=== PATIENT | female | born 1960 | race American Indian/Alaskan Native ===

== ENCOUNTER 2017-01-16 07:43 | Emergency (ER) | payer BC, MEDICARE ==
[2017-01-16] MEDS ORDERED: NORCO 7.5/325 PO ONE (08:22)
[2017-01-16] MEDS ORDERED: TORADOL IM ONE (08:22)
[2017-01-16] MEDS ORDERED: FLEXERIL PO ONE (08:25)
--- NOTE | 2017-01-16 08:30 | Emergency Department Report ---
ED Fall HPI - General Chief Complaint: Fall Stated Complaint: HIPS/BACK/KNEE/SHOULDER PAIN Time Seen by Provider: 01/16/17 08:14 Source: patient Mode of arrival: Ambulatory - History of Present Illness Initial Comments: 56 year old female presents to ED with chronic bilateral knee pain, bilateral hip pain and left shoulder pain since July 2016. Patient states she had a mechanical fall while walking dog in July of 2016 and has never had xray's of knees, hips or shoulder where her pain currently is. patient denies trauma to head or LOC during fall of last year. patient denies any recent falls after fall in July 2016. patient has chronic use of cane for assisted walking. patient is stable, neurologically intact and in no acute distress. MD Complaint: fall (patient states her last fall was July 2016) -: month(s) (Patient last fall was july 2016) Fall From: standing When Fall Occurred: other (July 2016) Fall Witnessed: no Place Fall Occurred: street Loss of Consciousness: none Symptoms Prior to Fall: none (mechanical fall) Location: pelvis, other (bilateral knees, left shoulder) Location - Extremities: Left: Shoulder, Knee, Right: Knee Severity: mild Severity scale (0 -10): 10 Quality: burning Context: tripped/slipped Associated Symptoms: denies, unable to walk (patient has chronic use of cane x3 years) - Related Data Previous Rx's Medication Instructions Recorded Last Taken Type Gentamicin 0.3% Ophth Soln 2 drops OP Q4H #1 bottle 11/14/13 Unknown Rx Cyclobenzaprine [Flexeril] 10 mg PO TID PRN #21 tablet 01/16/17 Unknown Rx Ketorolac [Toradol] 10 mg PO Q6H PRN #16 tablet 01/16/17 Unknown Rx Allergies Allergy/AdvReac Type Severity Reaction Status Date / Time iv contrast Allergy Rash Uncoded 11/14/13 11:24 ED Review of Systems ROS: Stated complaint: HIPS/BACK/KNEE/SHOULDER PAIN Other details as noted in HPI Constitutional: denies: chills, fever Eyes: denies: eye pain, eye discharge, vision change ENT: denies: ear pain, throat pain Respiratory: denies: cough, shortness of breath, wheezing Cardiovascular: denies: chest pain, palpitations Endocrine: no symptoms reported Gastrointestinal: denies: abdominal pain, nausea, diarrhea Genitourinary: denies: urgency, dysuria, discharge Musculoskeletal: joint swelling. denies: back pain, arthralgia Skin: denies: rash, lesions Neurological: denies: headache, weakness, paresthesias Psychiatric: denies: anxiety, depression Hematological/Lymphatic: denies: easy bleeding, easy bruising ED Past Medical Hx - Past Medical History Previous Medical History?: Yes Hx Hypertension: Yes (No meds) Additional medical history: Left side weakness. amb with a cane - Surgical History Past Surgical History?: Yes Additional Surgical History: tonsillectomy. uterine fibroid tumor removal. hyst. gastric bypass - Social History Smoking Status: Never Smoker Substance Use Type: Non Opiate Pain, Prescribed - Medications Home Medications: Home Medications Medication Instructions Recorded Confirmed Last Taken Type Gentamicin 0.3% Ophth Soln 2 drops OP Q4H #1 bottle 11/14/13 Unknown Rx Cyclobenzaprine [Flexeril] 10 mg PO TID PRN #21 tablet 01/16/17 Unknown Rx Ketorolac [Toradol] 10 mg PO Q6H PRN #16 tablet 01/16/17 Unknown Rx ED Physical Exam - General Limitations: Physical Limitation General appearance: alert, in no apparent distress - Head Head exam: Present: atraumatic, normocephalic - Eye Eye exam: Present: normal appearance - ENT ENT exam: Present: mucous membranes moist - Neck Neck exam: Present: normal inspection, full ROM - Respiratory Respiratory exam: Present: normal lung sounds bilaterally. Absent: respiratory distress - Cardiovascular Cardiovascular Exam: Present: regular rate, normal rhythm. Absent: systolic murmur, diastolic murmur, rubs, gallop - GI/Abdominal GI/Abdominal exam: Present: soft, normal bowel sounds - Extremities Exam Extremities exam: Present: normal inspection, tenderness, joint swelling - Expanded Upper Extremity Exam Left General: Present: normal inspection Shoulder Exam: Present: tenderness Upper Arm exam: Present: normal inspection Elbow exam: Present: normal inspection Forearm Wrist exam: Present: normal inspection Hand Wrist exam: Present: normal inspection - Expanded Lower Extremity Exam Left Hip exam: Present: tenderness Upper Leg exam: Present: normal inspection Knee exam: Present: tenderness (tenderness with palpation to anterior knee), swelling Lower Leg exam: Present: normal inspection Ankle exam: Present: normal inspection Gait: Positive: observed and limited by pain Right Hip exam: Present: tenderness Upper Leg exam: Present: normal inspection Knee exam: Present: tenderness, swelling Lower Leg exam: Present: normal inspection Ankle exam: Present: normal inspection Gait: Positive: observed and limited by pain - Back Exam Back exam: Present: normal inspection. Absent: tenderness - Neurological Exam Neurological exam: Present: alert, oriented X3 - Psychiatric Psychiatric exam: Present: normal affect, normal mood - Skin Skin exam: Present: warm, dry, intact, normal color. Absent: rash ED Course Vital Signs 01/16/17 01/16/17 01/16/17 07:49 08:35 09:28 Temperature 98.9 F Pulse Rate 115 H 104 H Respiratory 22 18 18 Rate Blood Pressure 178/89 Blood Pressure 145/73 [Right] O2 Sat by Pulse 98 98 Oximetry Vital Signs 01/16/17 01/16/17 01/16/17 07:49 08:35 09:28 Temperature 98.9 F Pulse Rate 115 H 104 H Respiratory 22 18 18 Rate Blood Pressure 178/89 Blood Pressure 145/73 [Right] O2 Sat by Pulse 98 98 Oximetry 01/16/17 09:50 Temperature Pulse Rate 96 H Respiratory Rate Blood Pressure Blood Pressure [Right] O2 Sat by Pulse Oximetry - Reevaluation(s) Reevaluation #1: 01/16/17 08:53 Patient was given medications for pain relief and awaiting xray results at 853am ED Medical Decision Making - Radiology Data Radiology results: report reviewed Bilateral Hips with pelvis: No acute findings or evidence for fracture, dislocation. Soft tissue unremarkable. Bilateral knees: Minimal osteoarthritic changes. No evidence for fracture, bone lesion or joint effusion. Left shoulder: Normal bony and soft tissure structures with normal joint alignment of the shoulder. - Medical Decision Making 56 year old female presents to ED with bilateral knee pain, bilateral hip pain and left shoulder pain after fall in July of 2016. patient is stable, neurologically intact and in no acute distress. pain status decreased and patient will be referred to ortho services as outpatient for further evaluation if pain persists. Critical care attestation.: If time is entered above; I have spent that time in minutes in the direct care of this critically ill patient, excluding procedure time. ED Disposition Clinical Impression: Osteoarth NOS-l/leg Disposition: DISCHARGED TO HOME OR SELFCARE Is pt being admited?: No Does the pt Need Aspirin: No Condition: Stable Instructions: Osteoarthritis (ED), Fall Prevention (ED) Prescriptions: Cyclobenzaprine [Flexeril] 10 mg PO TID PRN #21 tablet PRN Reason: Muscle Spasm Ketorolac [Toradol] 10 mg PO Q6H PRN #16 tablet PRN Reason: Pain Referrals: PRIMARY CARE, [Primary Care Provider] - 3-5 Days RAMONA LEBRON MD [Staff Physician] - 3-5 Days Forms: Work/School Release Form(ED)
--- NOTE | 2017-01-16 09:20 | XRay Report ---
LEFT SHOULDER: History: Pain. Routine views demonstrate normal bony and soft tissue structures with normal joint alignment of the shoulder. IMPRESSION: Unremarkable study.
--- NOTE | 2017-01-16 09:20 | XRay Report ---
BILATERAL HIPS WITH PELVIS, 3 VIEWS: History: Pain. Findings: Bone mineralization is within normal limits. There is no evidence for fracture, dislocation or pelvic diastasis. No advanced joint pathology is detected. The soft tissues are unremarkable. Impression: Unremarkable exam.
--- NOTE | 2017-01-16 09:21 | XRay Report ---
BILATERAL KNEES, 3 VIEWS History: Pain. Findings: Minimal osteoarthritic changes are identified bilaterally. No evidence for fracture, bone lesion or joint effusion. Impression: Minimal osteoarthritic changes.
[2017-01-16 09:30] VITALS: BP 145/73
== END 2017-01-16 10:01 | disposition home or self-care (01) ==
LOC: ED 07:43
DX: M17.0 Bilateral primary osteoarthritis of knee (principal); I10 Essential (primary) hypertension
CPT/HCPCS: 73030; 73521; 73562; 96372; 99283; J1885

== ENCOUNTER 2018-11-07 12:41 | Emergency (ER) | payer MEDICARE ==
[2018-11-07] MEDS ORDERED: NACL 0.9% 1000 ML 1,000 ML IV ONE (12:46)
--- NOTE | 2018-11-07 12:49 | Emergency Department Report ---
History of Present Illness - General Stated Complaint: AMS Time Seen by Provider: 11/07/18 12:41 Source: patient, family, EMS Mode of arrival: Stretcher Limitations: Altered Mental Status - History of Present Illness Initial Comments: 58-year-old female that presents emergency room with complaints of overdose. Patient's family states she possibly took out all, Seroquel and Valium. Daughter states that her mother came to her room this morning is that she wants to take pills to kill herself and then they found her outside intoxicated. Patient is lethargic but able to answer questions slowly. Patient is a note 3. Patient admits to overdosing but is unable to say what she took. MD Complaint: intentional overdose -: Sudden Intent: suicide attempt How Overdose Was Discovered: called family/friend Associated Symptoms: depression Treatments Prior to Arrival: oxygen - Related Data Previous Rx's Medication Instructions Recorded Last Taken Type Gentamicin 0.3% Ophth Soln 2 drops OP Q4H #1 bottle 11/14/13 Unknown Rx Cyclobenzaprine [Flexeril] 10 mg PO TID PRN #21 tablet 01/16/17 Unknown Rx Ketorolac [Toradol] 10 mg PO Q6H PRN #16 tablet 01/16/17 Unknown Rx Allergies Allergy/AdvReac Type Severity Reaction Status Date / Time iv contrast Allergy Rash Uncoded 11/14/13 11:24 ED Review of Systems ROS: Stated complaint: AMS Other details as noted in HPI Constitutional: denies: chills, fever Eyes: denies: eye pain, eye discharge, vision change ENT: denies: ear pain, throat pain Respiratory: denies: cough, shortness of breath, wheezing Cardiovascular: denies: chest pain, palpitations Endocrine: no symptoms reported Gastrointestinal: denies: abdominal pain, nausea, diarrhea Genitourinary: denies: urgency, dysuria, discharge Musculoskeletal: denies: back pain, joint swelling, arthralgia Skin: denies: rash, lesions Neurological: denies: headache, weakness, paresthesias Psychiatric: suicidal thoughts. denies: anxiety, depression Hematological/Lymphatic: denies: easy bleeding, easy bruising ED Past Medical Hx - Past Medical History Previous Medical History?: Yes Hx Hypertension: Yes (No meds) Additional medical history: Left side weakness. amb with a cane - Surgical History Past Surgical History?: Yes Additional Surgical History: tonsillectomy. uterine fibroid tumor removal. hyst. gastric bypass - Family History Family history: no significant - Social History Smoking Status: Never Smoker Substance Use Type: Non Opiate Pain, Prescribed - Medications Home Medications: Home Medications Medication Instructions Recorded Confirmed Last Taken Type Gentamicin 0.3% Ophth Soln 2 drops OP Q4H #1 bottle 11/14/13 Unknown Rx Cyclobenzaprine [Flexeril] 10 mg PO TID PRN #21 tablet 01/16/17 Unknown Rx Ketorolac [Toradol] 10 mg PO Q6H PRN #16 tablet 01/16/17 Unknown Rx ED Physical Exam - General General appearance: alert, lethargic (but arousable) - Head Head exam: Present: atraumatic, normocephalic - Eye Eye exam: Present: normal appearance - ENT ENT exam: Present: mucous membranes moist - Neck Neck exam: Present: normal inspection - Respiratory Respiratory exam: Present: normal lung sounds bilaterally. Absent: respiratory distress - Cardiovascular Cardiovascular Exam: Present: regular rate, normal rhythm. Absent: systolic murmur, diastolic murmur, rubs, gallop - GI/Abdominal GI/Abdominal exam: Present: soft, normal bowel sounds - Extremities Exam Extremities exam: Present: normal inspection - Back Exam Back exam: Present: normal inspection - Neurological Exam Neurological exam: Present: alert, oriented X3 - Expanded Neurological Exam Expanded Patient oriented to: Present: person, place, time Speech: Present: fluid speech (fluid speech was slurred and slow) Best Eye Response ([place]): (4) open spontaneously Best Motor Response ([place]): (6) obeys commands Best Verbal Response ([place]): (5) oriented Terry Total: 15 - Psychiatric Psychiatric exam: Present: normal affect, normal mood - Skin Skin exam: Present: warm, dry, intact, normal color. Absent: rash ED Course Vital Signs 11/07/18 11/07/18 11/07/18 12:45 12:48 13:00 Temperature 97.5 F L Pulse Rate 127 H 116 H Respiratory 26 H 18 18 Rate Blood Pressure 120/43 120/43 Blood Pressure 120/43 [Right] O2 Sat by Pulse 94 98 Oximetry 11/07/18 11/07/18 11/07/18 13:16 13:30 13:46 Temperature Pulse Rate 117 H 111 H 122 H Respiratory 17 15 14 Rate Blood Pressure 101/46 120/43 120/43 Blood Pressure [Right] O2 Sat by Pulse 97 98 98 Oximetry 11/07/18 11/07/18 11/07/18 14:00 14:16 14:30 Temperature Pulse Rate 117 H 118 H 110 H Respiratory 15 18 16 Rate Blood Pressure 120/43 120/43 140/70 Blood Pressure [Right] O2 Sat by Pulse 98 86 99 Oximetry 11/07/18 11/07/18 11/07/18 14:46 15:00 15:15 Temperature Pulse Rate 108 H 107 H 106 H Respiratory 16 14 15 Rate Blood Pressure 140/70 140/70 136/66 Blood Pressure [Right] O2 Sat by Pulse 99 98 98 Oximetry 11/07/18 11/07/18 11/07/18 15:30 15:45 16:00 Temperature Pulse Rate 110 H 97 H 99 H Respiratory 14 11 L 17 Rate Blood Pressure 155/82 148/68 135/73 Blood Pressure [Right] O2 Sat by Pulse 99 99 97 Oximetry 11/07/18 11/07/18 11/07/18 16:15 16:30 16:45 Temperature Pulse Rate 100 H 99 H 94 H Respiratory 18 18 17 Rate Blood Pressure 152/69 148/65 161/78 Blood Pressure [Right] O2 Sat by Pulse 97 97 98 Oximetry 11/07/18 11/07/18 11/07/18 17:00 17:15 17:30 Temperature Pulse Rate 100 H 101 H 96 H Respiratory 13 18 21 Rate Blood Pressure 163/87 153/73 167/72 Blood Pressure [Right] O2 Sat by Pulse 97 97 95 Oximetry 11/07/18 17:45 Temperature Pulse Rate 92 H Respiratory 18 Rate Blood Pressure 167/72 Blood Pressure [Right] O2 Sat by Pulse 98 Oximetry - Reevaluation(s) Reevaluation #1: Patient evaluated medially upon arrival by EMS. Patient is able to answer questions but speech is slowed. Patient's family is at bedside. Patient's family states patient was tried kill herself. Patient states she took pills and alcohol in order to end her life. Patient states she been depressed lately. 1013 will be signed. Poison control we called by nurse. We'll await recommendations by poison control. 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 Initialized on 11/07/18 13:28 - END OF NOTE Reevaluation #2: Mental health consultation 11/07/18 14:29 Reevaluation #3: Patient is more alert. Patient answering questions. Patient confirms suicide attempt. 11/07/18 15:43 Patient is becoming more alert. Patient resting in bed without complaints. Discussed all results and plan of care with patient. Patient still receiving with antibiotic. UDS will be sent by nurse. 11/07/18 17:42 The time has lapsed recommended by poison control to monitor patient. Patient is now medically cleared. However patient remained in the ER on an ER hold and on a 1013. Patient has not had any issues in the ER. Patient has continued to improve. 11/07/18 18:17 ED Medical Decision Making - Lab Data Result diagrams: 11/07/18 13:18 11/07/18 13:18 Critical Care Time: Yes Critical care attestation.: If time is entered above; I have spent that time in minutes in the direct care of this critically ill patient, excluding procedure time. Critical Care Time: 45 minutes ED Disposition Clinical Impression: Suicidal ideation Overdose Qualifiers: Encounter type: initial encounter Injury intent: intentional self-harm Qualified Code(s): T50.902A - Poisoning by unspecified drugs, medicaments and biological substances, intentional self-harm, initial encounter Acute alcohol intoxication Qualifiers: Complication of substance-induced condition: uncomplicated Qualified Code(s): F10.920 - Alcohol use, unspecified with intoxication, uncomplicated Disposition: [id number]/TX-65 PSY HOSP/PSY UNIT Is pt being admited?: No Does the pt Need Aspirin: No Condition: Critical Additional Instructions: Patient is medically cleared Referrals: LIBAN GERMAN MD [Primary Care Provider] - 2-3 Days Time of Disposition: 18:17
[2018-11-07 13:46] LABS: Hematocrit 47.9 % (30.3-42.9); Hemoglobin 16.3 gm/dl (10.1-14.3); Mean Corpuscular HGB Conc 34 % (30-34); Mean Corpuscular Volume 102 fl (79-97); Platelet Count 219 K/mm3 (140-440); Red Blood Count 4.72 M/mm3 (3.65-5.03); Red Cell Distribution Width 14.7 % (13.2-15.2)
[2018-11-07 13:54] LABS: Alanine Aminotransferase 21 units/L (7-56); Albumin 4.1 g/dL (3.9-5); BUN/Creatinine Ratio 10; Blood Urea Nitrogen 6 mg/dL (7-17); Calcium 8.8 mg/dL (8.4-10.2); Hemolysis Index 16
[2018-11-07] MEDS ORDERED: VITAMIN B-1 100 MG, FOLVITE 1 MG, INFUVITE 10 ML in NACL 0.9% 1000 ML 1,000 ML IV ONE (14:25)
[2018-11-07] MEDS ORDERED: FOLVITE 1 MG, INFUVITE 10 ML in NACL 0.9% 1000 ML 1,000 ML IV ONE (15:00)
[2018-11-07] MEDS ORDERED: VITAMIN B-1 PO SCH (15:00)
[2018-11-07 18:36] LABS: Amphetamine Screen,Urine PRESUMPTIVE NEGATIVE; Cocaine Screen,Urine PRESUMPTIVE NEGATIVE; Methadone Screen,Urine PRESUMPTIVE NEGATIVE; Opiate Screen,Urine PRESUMPTIVE NEGATIVE
[2018-11-07 18:43] LABS: Bacteria,Urine 1+ /HPF (Negative); Bilirubin,Urine NEG (Negative); Blood,Urine NEG (Negative); Color,Urine Straw (Yellow); Protein,Urine <15 mg/dL mg/dL (Negative); Urobilinogen,Urine < 2.0 mg/dL (<2.0); WBC,Urine < 1.0 /HPF (0.0-6.0)
[2018-11-07 18:49] LABS: Benzodiazepines Screen,Urine PRESUMPTIVE POSITIVE; Cannabinoid Screen,Urine PRESUMPTIVE POSITIVE
[2018-11-07 19:50] LABS: Anisocytosis 1+; Basophils % (Manual) 0 % (0.0-1.8); Total Cells Counted 100
[2018-11-07 19:51] LABS: Platelet Estimate Consistent w Auto
[2018-11-08 08:56] VITALS: BP 172/73
--- NOTE | 2018-11-08 12:53 | XRay Report ---
LEFT HIP RADIOGRAPHS INDICATION: Hip pain. COMPARISON: 01/16/2017. FINDINGS: An AP pelvic radiograph with frog-leg projection of the left hip demonstrate normal femoral head contours. Imaged bilateral SI and hip joints appear intact. Left more than right hip/acetabular degenerative spurring. Lower lumbar bone grafting or arthropathy again noted as also pubic symphysis sclerosis. Nonobstructive bowel gas pattern. CONCLUSION: No acute radiographic abnormality with few other stable findings, as described. Please correlate. Thank you for the opportunity to participate in this patient's care.
[2018-11-08] MEDS ORDERED: NORVASC PO SCH ×2 (13:00→14:00)
[2018-11-08] MEDS ORDERED: INDERAL PO SCH (13:00)
[2018-11-08] MEDS ORDERED: VALIUM PO SCH (13:00)
== END 2018-11-08 21:18 ==
LOC: EEVIPCON 12:41 → ED 12:41
DX: T43.592A Poisoning by other antipsychotics and neuroleptics, intentional self-harm, initial encounter (principal); F10.920 Alcohol use, unspecified with intoxication, uncomplicated; R45.851 Suicidal ideations; I10 Essential (primary) hypertension; Z90.89 Acquired absence of other organs; Z91.041 Radiographic dye allergy status; Y92.89 Other specified places as the place of occurrence of the external cause
CPT/HCPCS: 36415; 73502; 80053; 80307; 81001; 85007; 85025; 93005; 93010; 96365; 96366; 99291; G0480; J7030; 80320; J3411

== ENCOUNTER 2019-10-10 13:02 | Emergency (ER) | payer MEDICARE ==
--- NOTE | 2019-10-10 13:45 | Event Note ---
ED Screening Note Date of service: 10/10/19 Time: 13:43 ED Screening Note: 58 y o female presents with syncopal episode and memory loss also cc of rash to left hand and redness hx of drug use psych Hx- not on meds This initial assessment/diagnostic orders/clinical plan/treatment(s) is/are subj ect to change based on patients health status, clinical progression and re- assessment by fellow clinical providers in the ED. Further treatment and workup at subsequent clinical providers discretion. Patient/guardian urged not to elope from the ED as their condition may be serious if not clinically assessed and managed. Initial orders include: labs, us, uds main side eval
[2019-10-10 16:15] LABS: Amphetamine Screen,Urine PRESUMPTIVE NEGATIVE; Benzodiazepines Screen,Urine PRESUMPTIVE NEGATIVE; Cocaine Screen,Urine PRESUMPTIVE NEGATIVE; Methadone Screen,Urine PRESUMPTIVE NEGATIVE; Opiate Screen,Urine PRESUMPTIVE NEGATIVE
[2019-10-10 16:20] LABS: Bilirubin,Urine NEG (Negative); Blood,Urine NEG (Negative); Color,Urine Yellow (Yellow); Hyaline Casts,Urine 19 /LPF; Mucus,Urine FEW /HPF; Protein,Urine <15 mg/dL mg/dL (Negative)
[2019-10-10 16:35] LABS: Cannabinoid Screen,Urine PRESUMPTIVE POSITIVE
[2019-10-10 17:59] LABS: Hematocrit 42.1 % (30.3-42.9); Hemoglobin 14.6 gm/dl (10.1-14.3); Mean Corpuscular HGB Conc 35 % (30-34); Mean Corpuscular Volume 99 fl (79-97); Platelet Count 247 K/mm3 (140-440); Red Blood Count 4.25 M/mm3 (3.65-5.03); Red Cell Distribution Width 12.5 % (13.2-15.2)
[2019-10-10 18:19] LABS: BUN/Creatinine Ratio 17; Blood Urea Nitrogen 10 mg/dL (7-17); Calcium 9.5 mg/dL (8.4-10.2); Hemolysis Index 85
--- NOTE | 2019-10-10 18:38 | Emergency Department Report ---
HPI - General Chief Complaint: Medical Clearance Time Seen by Provider: 10/10/19 18:14 - HPI HPI: Room 38 The patient is a 58-year-old female presenting with chief complaint of fall. The patient states 1-2 weeks ago she fell injuring her left upper extremity. Patient states she has a history of vertigo. The patient states she injured her left upper extremity with a bruising to the upper extremity has improved but she continues to have pain in her left hand. The patient states since her fall she has had difficulty with short-term memory. Patient admits to striking her head during the fall but did not go to the hospital for evaluation. The patient states she came to the hospital tonight because her memory has not improved. Patient denies suicidal or homicidal ideation. Patient denies visual or auditory hallucinations Location: [See above] Duration: [See above] Quality: [See above] Severity: [See above] Timing: [See above] Context: [See above] Modifying factors: [See above] Associated signs and symptoms: [see above] ED Past Medical Hx - Past Medical History Previous Medical History?: Yes Hx Hypertension: Yes (No meds) Additional medical history: Left sided weakness - Surgical History Past Surgical History?: Yes Additional Surgical History: tonsillectomy. uterine fibroid tumor removal. hyst. gastric bypass - Family History Family history: no significant - Social History Smoking Status: Never Smoker Substance Use Type: Alcohol (occasional), Marijuana - Medications Home Medications: Home Medications Medication Instructions Recorded Confirmed Last Taken Type Cyclobenzaprine [Flexeril] 10 mg PO TID PRN #21 tablet 01/16/17 11/07/18 Unknown Rx Diazepam [Valium] 5 mg PO BID 11/07/18 11/07/18 Unknown History Propranolol HCl 20 mg PO DAILY 11/07/18 11/07/18 Unknown History HYDROcodone/APAP 5-325 [Shevlin 1 each PO Q6HR PRN #14 tablet 10/10/19 Unknown Rx 5/325] QUEtiapine [SEROquel] 100 mg PO HS #30 10/10/19 Unknown Rx amLODIPine 10 mg PO DAILY #90 10/10/19 Unknown Rx ED Review of Systems ROS: Stated complaint: PASSED OUT/RASH/LOSS OF MEMORY Other details as noted in HPI Constitutional: no symptoms reported Eyes: denies: eye pain ENT: denies: throat pain Respiratory: no symptoms reported Cardiovascular: denies: chest pain Endocrine: no symptoms reported Gastrointestinal: denies: abdominal pain Genitourinary: denies: dysuria Musculoskeletal: arthralgia, myalgia Neurological: denies: headache Physical Exam - Physical Exam Vital Signs: Vital Signs 10/10/19 13:44 Temperature 98.0 F Pulse Rate 86 Respiratory 18 Rate Blood Pressure 154/71 O2 Sat by Pulse 98 Oximetry Physical Exam: GENERAL: The patient is well-developed well-nourished female sitting on stretcher not appearing to be in acute distress. [] HEENT: Normocephalic. Atraumatic. Extraocular motions are intact. Patient has moist mucous membranes. NECK: Supple. Trachea midline CHEST/LUNGS: Clear to auscultation. There is no respiratory distress noted. HEART/CARDIOVASCULAR: Regular. There is no tachycardia. There is no gallop rub or murmur. ABDOMEN: Abdomen is soft, nontender. Patient has normal bowel sounds. There is no abdominal distention. SKIN: There is no rash. There is no edema. There is no diaphoresis. NEURO: The patient is awake, alert, and oriented. The patient is cooperative. The patient has no focal neurologic deficits. The patient has normal speech. Cranial nerves II through XII grossly intact, no drift MUSCULOSKELETAL: There is no evidence of acute injury. ED Course Vital Signs 10/10/19 13:44 Temperature 98.0 F Pulse Rate 86 Respiratory 18 Rate Blood Pressure 154/71 O2 Sat by Pulse 98 Oximetry ED Medical Decision Making - Lab Data Result diagrams: 10/10/19 17:41 10/10/19 17:41 Laboratory Tests 10/10/19 10/10/19 10/10/19 15:47 15:47 17:41 WBC RBC Hgb Hct MCV MCH MCHC RDW Plt Count Lymph % (Auto) Add Manual Diff Total Counted Seg Neutrophils % Seg Neuts % (Manual) Band Neutrophils % Lymphocytes % (Manual) Reactive Lymphs % (Man) Monocytes % (Manual) Eosinophils % (Manual) Basophils % (Manual) Metamyelocytes % Myelocytes % Promyelocytes % Blast Cells % Nucleated RBC % Seg Neutrophils # Man Band Neutrophils # Lymphocytes # (Manual) Abs React Lymphs (Man) Monocytes # (Manual) Eosinophils # (Manual) Basophils # (Manual) Metamyelocytes # Myelocytes # Promyelocytes # Blast Cells # WBC Morphology Hypersegmented Neuts Hyposegmented Neuts Hypogranular Neuts Smudge Cells Toxic Granulation Toxic Vacuolation Dohle Bodies Pelger-Huet Anomaly Natalia Rods Platelet Estimate Clumped Platelets Plt Clumps, EDTA Large Platelets Giant Platelets Platelet Satelliting Plt Morphology Comment RBC Morphology Dimorphic RBCs Polychromasia Hypochromasia Poikilocytosis Anisocytosis Microcytosis Macrocytosis Spherocytes Pappenheimer Bodies Sickle Cells Target Cells Tear Drop Cells Ovalocytes Helmet Cells Xavier-Snead Bodies Plato Rings [place] Cells Bite Cells Crenated Cell Elliptocytes Acanthocytes (Spur) Rouleaux Hemoglobin C Crystals Schistocytes Malaria parasites Montrell Bodies Hem Pathologist Commnt Sodium Potassium Chloride Carbon Dioxide Anion Gap BUN Creatinine Estimated GFR BUN/Creatinine Ratio Glucose Calcium Urine Color Yellow Urine Turbidity Clear Urine pH 6.0 Ur Specific Greene 1.017 Urine Protein <15 mg/dl Urine Glucose (UA) Neg Urine Ketones Neg Urine Blood Neg Urine Nitrite Neg Urine Bilirubin Neg Urine Urobilinogen 2.0 Ur Leukocyte Esterase Neg Urine WBC (Auto) 1.0 Urine RBC (Auto) 2.0 U Epithel Cells (Auto) 1.0 Hyaline Casts 19 Urine Mucus Few Salicylates < 0.3 L Urine Opiates Screen Presumptive negative Urine Methadone Screen Presumptive negative Acetaminophen Ur Barbiturates Screen Presumptive negative Ur Phencyclidine Scrn Presumptive negative Ur Amphetamines Screen Presumptive negative U Benzodiazepines Scrn Presumptive negative Urine Cocaine Screen Presumptive negative U Marijuana (THC) Screen Presumptive positive Drugs of Abuse Note Disclamer Plasma/Serum Alcohol 10/10/19 10/10/19 10/10/19 17:41 17:41 17:41 WBC RBC Hgb Hct MCV MCH MCHC RDW Plt Count Lymph % (Auto) Add Manual Diff Total Counted Seg Neutrophils % Seg Neuts % (Manual) Band Neutrophils % Lymphocytes % (Manual) Reactive Lymphs % (Man) Monocytes % (Manual) Eosinophils % (Manual) Basophils % (Manual) Metamyelocytes % Myelocytes % Promyelocytes % Blast Cells % Nucleated RBC % Seg Neutrophils # Man Band Neutrophils # Lymphocytes # (Manual) Abs React Lymphs (Man) Monocytes # (Manual) Eosinophils # (Manual) Basophils # (Manual) Metamyelocytes # Myelocytes # Promyelocytes # Blast Cells # WBC Morphology Hypersegmented Neuts Hyposegmented Neuts Hypogranular Neuts Smudge Cells Toxic Granulation Toxic Vacuolation Dohle Bodies Pelger-Huet Anomaly Natalia Rods Platelet Estimate Clumped Platelets Plt Clumps, EDTA Large Platelets Giant Platelets Platelet Satelliting Plt Morphology Comment RBC Morphology Dimorphic RBCs Polychromasia Hypochromasia Poikilocytosis Anisocytosis Microcytosis Macrocytosis Spherocytes Pappenheimer Bodies Sickle Cells Target Cells Tear Drop Cells Ovalocytes Helmet Cells Xavier-Snead Bodies Plato Rings Tony Cells Bite Cells Crenated Cell Elliptocytes Acanthocytes (Spur) Rouleaux Hemoglobin C Crystals Schistocytes Malaria parasites Montrell Bodies Hem Pathologist Commnt Sodium 136 L Potassium 3.9 Chloride 98.9 Carbon Dioxide 20 L Anion Gap 21 BUN 10 Creatinine 0.6 L Estimated GFR > 60 BUN/Creatinine Ratio 17 Glucose 96 Calcium 9.5 Urine Color Urine Turbidity Urine pH Ur Specific Greene Urine Protein Urine Glucose (UA) Urine Ketones Urine Blood Urine Nitrite Urine Bilirubin Urine Urobilinogen Ur Leukocyte Esterase Urine WBC (Auto) Urine RBC (Auto) U Epithel Cells (Auto) Hyaline Casts Urine Mucus Salicylates Urine Opiates Screen Urine Methadone Screen Acetaminophen < 5.0 L Ur Barbiturates Screen Ur Phencyclidine Scrn Ur Amphetamines Screen U Benzodiazepines Scrn Urine Cocaine Screen U Marijuana (THC) Screen Drugs of Abuse Note Plasma/Serum Alcohol < 0.01 10/10/19 17:41 WBC 6.3 RBC 4.25 Hgb 14.6 H Hct 42.1 MCV 99 H MCH 34 H MCHC 35 H RDW 12.5 L Plt Count 247 Lymph % (Auto) Conductor Orchestra Add Manual Diff Complete Total Counted 100 Seg Neutrophils % Conductor Orchestra Seg Neuts % (Manual) 32.0 L Band Neutrophils % 0 Lymphocytes % (Manual) 56.0 H Reactive Lymphs % (Man) 0 Monocytes % (Manual) 6.0 Eosinophils % (Manual) 6.0 H Basophils % (Manual) 0 Metamyelocytes % 0 Myelocytes % 0 Promyelocytes % 0 Blast Cells % 0 Nucleated RBC % Not Reportable Seg Neutrophils # Man 2.0 Band Neutrophils # 0.0 Lymphocytes # (Manual) 3.5 Abs React Lymphs (Man) 0.0 Monocytes # (Manual) 0.4 Eosinophils # (Manual) 0.4 Basophils # (Manual) 0.0 Metamyelocytes # 0.0 Myelocytes # 0.0 Promyelocytes # 0.0 Blast Cells # 0.0 WBC Morphology Not Reportable Hypersegmented Neuts Not Reportable Hyposegmented Neuts Not Reportable Hypogranular Neuts Not Reportable Smudge Cells Not Reportable Toxic Granulation Not Reportable Toxic Vacuolation Not Reportable Dohle Bodies Not Reportable Pelger-Huet Anomaly Not Reportable Natalia Rods Not Reportable Platelet Estimate Not Reportable Clumped Platelets Not Reportable Plt Clumps, EDTA Not Reportable Large Platelets Not Reportable Giant Platelets Not Reportable Platelet Satelliting Not Reportable Plt Morphology Comment Not Reportable RBC Morphology Not Reportable Dimorphic RBCs Not Reportable Polychromasia Not Reportable Hypochromasia Not Reportable Poikilocytosis Not Reportable Anisocytosis 1+ Microcytosis Not Reportable Macrocytosis Not Reportable Spherocytes Not Reportable Pappenheimer Bodies Not Reportable Sickle Cells Not Reportable Target Cells Not Reportable Tear Drop Cells Not Reportable Ovalocytes Not Reportable Helmet Cells Not Reportable Xavier-Snead Bodies Not Reportable Plato Rings Not Reportable [place] Cells Not Reportable Bite Cells Not Reportable Crenated Cell Not Reportable Elliptocytes Not Reportable Acanthocytes (Spur) Not Reportable Rouleaux Not Reportable Hemoglobin C Crystals Not Reportable Schistocytes Not Reportable Malaria parasites Not Reportable Montrell Bodies Not Reportable Hem Pathologist Commnt No Sodium Potassium Chloride Carbon Dioxide Anion Gap BUN Creatinine Estimated GFR BUN/Creatinine Ratio Glucose Calcium Urine Color Urine Turbidity Urine pH Ur Specific Greene Urine Protein Urine Glucose (UA) Urine Ketones Urine Blood Urine Nitrite Urine Bilirubin Urine Urobilinogen Ur Leukocyte Esterase Urine WBC (Auto) Urine RBC (Auto) U Epithel Cells (Auto) Hyaline Casts Urine Mucus Salicylates Urine Opiates Screen Urine Methadone Screen Acetaminophen Ur Barbiturates Screen Ur Phencyclidine Scrn Ur Amphetamines Screen U Benzodiazepines Scrn Urine Cocaine Screen U Marijuana (THC) Screen Drugs of Abuse Note Plasma/Serum Alcohol - Radiology Data Radiology results: report reviewed (left hand x-ray, CT head, CT cervical spine), image reviewed (left hand x-ray, CT head, CT cervical spine) interpreted by me: Left hand x-ray of fracture of proximal thumb phalanx [facility] [address] [place] [address] XRay Report Signed Patient: EUGENE HERNANDEZ MR#: [id number] [birth year] : 1960 Acct:[id number] Age/Sex: 58 / F ADM Date: 10/10/19 Loc: ED Attending Dr: Ordering Physician: LUIS FELIPE HERR MD Date of Service: 10/10/19 Procedure(s): XR hand 3+V LT Accession Number(s): [id number] cc: LUIS FELIPE HERR MD Fluoro Time In Minutes: LEFT HAND 3 VIEWS INDICATION / CLINICAL INFORMATION: pain after fall COMPARISON: 09/09/2019 FINDINGS: BONES / JOINT(S): Fracture of the proximal aspect of the proximal phalanx of the thumb is again noted. There is some mild demineralization along the fracture site. . There is degenerative change in the thumb carpal metacarpal joint. There is mild degenerative change in the thumb interphalangeal joint. SOFT TISSUES: No significant abnormality. ADDITIONAL FINDINGS: None. Signer Name: Jimmy Thomas MD Signed: 10/10/2019 7:05 PM Workstation Name: [id number] Transcribed By: SS Dictated By: Jimmy Thomas MD Electronically Authenticated By: Jimmy Thomas MD Signed Date/Time: 10/10/191904 DD/ 03 TD/TT: [facility] [address] [place] [address] XRay Report Signed Patient: EUGENE HERNANDEZ MR#: [id number] [birth year] : 1960 Acct:[id number] Age/Sex: 58 / F ADM Date: 10/10/19 Loc: ED Attending Dr: Ordering Physician: LUIS FELIPE HERR MD Date of Service: 10/10/19 Procedure(s): XR hand 3+V LT Accession Number(s): [id number] cc: LUIS FELIPE HERR MD Fluoro Time In Minutes: LEFT HAND 3 VIEWS INDICATION / CLINICAL INFORMATION: pain after fall COMPARISON: 09/09/2019 FINDINGS: BONES / JOINT(S): Fracture of the proximal aspect of the proximal phalanx of the thumb is again noted. There is some mild demineralization along the fracture site. . There is degenerative change in the thumb carpal metacarpal joint. There is mild degenerative change in the thumb interphalangeal joint. SOFT TISSUES: No significant abnormality. ADDITIONAL FINDINGS: None. Signer Name: Jimmy Thomas MD Signed: 10/10/2019 7:05 PM Workstation Name: [id number] Transcribed By: SS Dictated By: Jimmy Thomas MD Electronically Authenticated By: Jimmy Thomas MD Signed Date/Time: 10/10/191904 DD/ 03 TD/TT: [facility] [address] [place] [address] Cat Scan Report Signed Patient: EUGENE HERNANDEZ MR#: [id number] [birth year] : 1960 Acct:[id number] Age/Sex: 58 / F ADM Date: 10/10/19 Loc: ED Attending Dr: Ordering Physician: LUIS FELIPE HERR MD Date of Service: 10/10/19 Procedure(s): CT cervical spine wo con Accession Number(s): [id number] cc: LUIS FELIPE HERR MD CT CERVICAL SPINE WITHOUT CONTRAST INDICATION / CLINICAL INFORMATION: fall with head and neck injury. TECHNIQUE: Axial CT images were obtained through the cervical spine. Sagittal and coronal reformatted images were produced. All CT scans at this location are performed using CT dose reduction for ALARA by means of automated exposure control. COMPARISON: None available. FINDINGS: ALIGNMENT: There is no indication of traumatic subluxation. VERTEBRAE: There is no evidence of fracture or other osseous abnormality. DISC SPACES: Disc height is fairly well preserved throughout the cervical region. INDIVIDUAL LEVEL ANALYSIS: C1-2: Osteoarthritic changes are observed at the atlantoaxial junction between the anterior arch of C1 and the odontoid process. C2-3:No abnormality. C3-4:No abnormality. C4-5:No abnormality. C5-6:No abnormality. C6-7:No abnormality. C7-T1:No abnormality. There is no indication of significant facet or uncovertebral arthropathy. There is no evidence of central canal stenosis or significant neuroforaminal narrowing in the cervical region. Posterior osteophyte at the T2-T3 level contributes to central canal stenosis this location. Bilateral facet arthropathy is also noted at the T2-T3 level. CRANIOCERVICAL JUNCTION:No significant abnormality. SPINAL CANAL: Cervical spinal canal is adequately maintained throughout. PARASPINAL SOFT TISSUES: No significant abnormality. LUNG APICES: No significant abnormality of visualized lungs. IMPRESSION: 1. No indication of fracture or traumatic subluxation. 2. No indication of central canal stenosis or foraminal encroachment in the cervical region. 3. Posterior osteophyte at T2-3. Signer Name: Ricci Becerra MD Signed: 10/10/2019 7:57 PM Workstation Name: [id number] Transcribed By: Dictated By: Ricci Becerra MD Electronically Authenticated By: Ricci Becerra MD Signed Date/Time: 10/10/191956 DD/ 48 TD/TT: [facility] [address] [place] [address] Cat Scan Report Signed Patient: EUGENE HERNANDEZ MR#: [id number] [birth year] : 1960 Acct:[id number] Age/Sex: 58 / F ADM Date: 10/10/19 Loc: ED Attending Dr: Ordering Physician: LUIS FELIPE HERR MD Date of Service: 10/10/19 Procedure(s): CT head/brain wo con Accession Number(s): [id number] cc: LUIS FELIPE HERR MD CT HEAD WITHOUT CONTRAST INDICATION / CLINICAL INFORMATION: fall, memory loss. TECHNIQUE: All CT scans at this location are performed using CT dose reduction for ALARA by means of automated exposure control. COMPARISON: None available. FINDINGS: HEMORRHAGE: No evidence of intracranial hemorrhage or extra-axial fluid collection. EXTRA-AXIAL SPACES: Cortical sulci, sylvian fissures and basilar cisterns have an unremarkable appearance. VENTRICULAR SYSTEM: The ventricular system is of normal size and configuration. CEREBRAL PARENCHYMA: No areas of abnormal brain parenchymal attenuation are identified. There is no indication of recent infarction. MIDLINE SHIFT OR HERNIATION: There is no mass effect. CEREBELLUM / BRAINSTEM: Brainstem and cerebellum have an unremarkable appear ance. INTRACRANIAL VESSELS:No abnormalities are identified on this noncontrast head CT. ORBITS: visualized portions of the orbits have an unremarkable appearance. SOFT TISSUES of HEAD: No significant abnormality. CALVARIUM: Evaluation of bone windows reveals no abnormalities. PARANASAL SINUSES / MASTOID AIR CELLS: Paranasal sinuses are free from inflammatory mucosal disease. Mastoid air cells are normally pneumatized. IMPRESSION: 1. No abnormalities are identified on head CT without contrast. Signer Name: Ricci Becerra MD Signed: 10/10/2019 7:49 PM Workstation Name: [email or web address] Transcribed By: Dictated By: Ricci Becerra MD Electronically Authenticated By: Ricci Becerra MD Signed Date/Time: 10/10/191948 DD/ 43 TD/TT: - Differential Diagnosis closed head injury, subdural hematoma, cervical fracture, hand fracture Critical care attestation.: If time is entered above; I have spent that time in minutes in the direct care of this critically ill patient, excluding procedure time. ED Disposition Clinical Impression: Closed head injury, Thumb fracture Disposition: - TO HOME OR SELFCARE Is pt being admited?: No Does the pt Need Aspirin: No Condition: Stable Instructions: Minor Head Injury (ED) Additional Instructions: Return to the emergency department should you develop worsening symptoms, inability to tolerate food or liquids, high fever or any other concerns Prescriptions: amLODIPine 10 mg PO DAILY #90 HYDROcodone/APAP 5-325 [Shevlin 5/325] 1 each PO Q6HR PRN #14 tablet PRN Reason: Pain QUEtiapine [SEROquel] 100 mg PO HS #30 Referrals: PRIMARY CAREMD [Primary Care Provider] - 3-5 Days RAMONA LEBRON MD [Staff Physician] - 3-[address] [facility] [Outside] - 3-5 Days Time of Disposition: 20:35
[2019-10-10 19:01] LABS: Anisocytosis 1+; Basophils % (Manual) 0 % (0.0-1.8); Total Cells Counted 100
--- NOTE | 2019-10-10 19:10 | XRay Report ---
LEFT HAND 3 VIEWS INDICATION / CLINICAL INFORMATION: pain after fall COMPARISON: 09/09/2019 FINDINGS: BONES / JOINT(S): Fracture of the proximal aspect of the proximal phalanx of the thumb is again noted . There is some mild demineralization along the fracture site. . There is degenerative change in the thumb carpal metacarpal joint. There is mild degenerative long e in the thumb interphalangeal joint. SOFT TISSUES: No significant abnormality. ADDITIONAL FINDINGS: None. Signer Name: Jimmy Thomas MD Signed: 10/10/2019 7:05 PM Workstation Name: [id number]
--- NOTE | 2019-10-10 19:53 | Cat Scan Report ---
CT HEAD WITHOUT CONTRAST INDICATION / CLINICAL INFORMATION: fall, memory loss. TECHNIQUE: All CT scans at this location are performed using CT dose reduction for ALARA by means of automated e xposure control. COMPARISON: None available. FINDINGS: HEMORRHAGE: No evidence of intracranial hemorrhage or extra-axial fluid collection. EXTRA-AXIAL SPACES: Cortical sulci, sylvian fissures and basilar cisterns have an unremarkable appear ance. VENTRICULAR SYSTEM: The ventricular system is of normal size and configuration. CEREBRAL PARENCHYMA: No areas of abnormal brain parenchymal attenuation are identified. There is no i ndication of recent infarction. MIDLINE SHIFT OR HERNIATION: There is no mass effect. CEREBELLUM / BRAINSTEM: Brainstem and cerebellum have an unremarkable appearance. INTRACRANIAL VESSELS:No abnormalities are identified on this noncontrast head CT. ORBITS: visualized portions of the orbits have an unremarkable appearance. SOFT TISSUES of HEAD: No significant abnormality. CALVARIUM: Evaluation of bone windows reveals no abnormalities. PARANASAL SINUSES / MASTOID AIR CELLS: Paranasal sinuses are free from inflammatory mucosal disease. Mastoid air cells are normally pneumatized. IMPRESSION: 1. No abnormalities are identified on head CT without contrast. Signer Name: Ricci Becerra MD Signed: 10/10/2019 7:49 PM Workstation Name: [id number]
--- NOTE | 2019-10-10 20:01 | Cat Scan Report ---
CT CERVICAL SPINE WITHOUT CONTRAST INDICATION / CLINICAL INFORMATION: fall with head and neck injury. TECHNIQUE: Axial CT images were obtained through the cervical spine. Sagittal and coronal reformatted images wer e produced. All CT scans at this location are performed using CT dose reduction for ALARA by means of automated exposure control. COMPARISON: None available. FINDINGS: ALIGNMENT: There is no indication of traumatic subluxation. VERTEBRAE: There is no evidence of fracture or other osseous abnormality. DISC SPACES: Disc height is fairly well preserved throughout the cervical region. INDIVIDUAL LEVEL ANALYSIS: C1-2: Osteoarthritic changes are observed at the atlantoaxial junction between the anterior arch of C 1 and the odontoid process. C2-3:No abnormality. C3-4:No abnormality. C4-5:No abnormality. C5-6:No abnormality. C6-7:No abnormality. C7-T1:No abnormality. There is no indication of significant facet or uncovertebral arthropathy. There is no evidence of kristi tral canal stenosis or significant neuroforaminal narrowing in the cervical region. Posterior osteophyte at the T2-T3 level contributes to central canal stenosis this location. Bilater al facet arthropathy is also noted at the T2-T3 level. CRANIOCERVICAL JUNCTION:No significant abnormality. SPINAL CANAL: Cervical spinal canal is adequately maintained throughout. PARASPINAL SOFT TISSUES: No significant abnormality. LUNG APICES: No significant abnormality of visualized lungs. IMPRESSION: 1. No indication of fracture or traumatic subluxation. 2. No indication of central canal stenosis or foraminal encroachment in the cervical region. 3. Posterior osteophyte at T2-3. Signer Name: Ricci Becerra MD Signed: 10/10/2019 7:57 PM Workstation Name: [id number]
[2019-10-10 21:16] VITALS: BP 147/72
== END 2019-10-10 21:08 | disposition home or self-care (01) ==
LOC: ED 13:02
DX: S62.511A Displaced fracture of proximal phalanx of right thumb, initial encounter for closed fracture (principal); S09.90XA Unspecified injury of head, initial encounter; I10 Essential (primary) hypertension; F12.10 Cannabis abuse, uncomplicated; Z90.49 Acquired absence of other specified parts of digestive tract; Z79.899 Other long term (current) drug therapy; Z91.041 Radiographic dye allergy status; Z98.890 Other specified postprocedural states; W19.XXXA Unspecified fall, initial encounter; Y93.89 Activity, other specified; Y92.89 Other specified places as the place of occurrence of the external cause; Y99.8 Other external cause status
CPT/HCPCS: 36415; 70450; 72125; 80048; 80307; 80320; 81001; 85007; 85025; 93005; 93010; G0480